=== PATIENT | male | born 1990 | race American Indian/Alaskan Native ===

== ENCOUNTER 2018-02-24 12:16 | Emergency (ER) | payer SELFPAY ==
[2018-02-24 12:51] VITALS: BP 133/78
[2018-02-24] MEDS ORDERED: NORCO 7.5/325 PO ONE (15:12)
[2018-02-24] MEDS ORDERED: BOOSTRIX IM ONE (15:40)
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
--- NOTE | 2018-02-24 16:38 | XRay Report ---
FINAL REPORT EXAM: XR SPINE CERVICAL 2-3V HISTORY: low back pain TECHNIQUE: Four views cervical spine. PRIORS: None currently available. FINDINGS: C1-C2 articulation not adequately visualized. Nonspecific straightening of the normal cervical lordosis. Vertebral body heights and disc spaces are uniform. No fracture or subluxation. Prevertebral soft tissues are unremarkable. No scoliosis. No suspicious osseous lesions. No vertebral anomalies. IMPRESSION: C1-C2 articulation not adequately visualized. Nonspecific straightening of the normal lordotic alignment.
--- NOTE | 2018-02-24 16:39 | XRay Report ---
FINAL REPORT EXAM: XR SPINE LUMBOSACRAL 2-3V HISTORY: low back pain TECHNIQUE: Three views lumbar spine. PRIORS: None currently available. FINDINGS: Lordotic alignment. Mild disc space narrowing with grade 1 posterior subluxation at L3-L4. Mild disc space narrowing without subluxation at L5-S1. Otherwise disc spaces are uniform. No fracture. Posterior elements are intact. No scoliosis. No suspicious osseous lesions. No vertebral anomalies. SI joints are unremarkable. IMPRESSION: Mild discogenic disease at L3-L4 and L5-S1.
--- NOTE | 2018-02-24 17:33 | Cat Scan Report ---
FINAL REPORT EXAM: CT HEAD/BRAIN WO CON HISTORY: headache/neck pain TECHNIQUE: CT head without contrast PRIORS: None. FINDINGS: No acute intra-axial or extra-axial hemorrhage is identified. There is no evidence of midline shift or mass effect. The ventricles and sulci are within normal limits. Zuniga-white matter differentiation is intact. No acute parenchymal abnormalities seen. Bony calvarium is grossly intact. Visualized portions of the mastoids and paranasal sinuses are unremarkable. IMPRESSION: Negative CT head
== END 2018-02-24 18:21 | disposition home or self-care (01) ==
LOC: ED 12:16
DX: S00.03XA Contusion of scalp, initial encounter (principal); S16.1XXA Strain of muscle, fascia and tendon at neck level, initial encounter; S39.012A Strain of muscle, fascia and tendon of lower back, initial encounter; F17.200 Nicotine dependence, unspecified, uncomplicated; Y08.89XA Assault by other specified means, initial encounter; Y93.89 Activity, other specified; Y92.89 Other specified places as the place of occurrence of the external cause; Y99.8 Other external cause status
CPT/HCPCS: 70450; 72040; 72100; 90471; 99284